=== PATIENT | female | born 1990 | race African-American/Black ===

== ENCOUNTER 2016-12-04 22:18 | Emergency (ER) | payer OTHER ==
[2016-12-05] MEDS ORDERED: NORMAL SALINE 1000 ML 1,000 ML IV ONE (01:00)
--- NOTE | 2016-12-05 01:00 | ER Document Report ---
ED General - General Chief Complaint: Cough Stated Complaint: TROUBLE BREATHING Time Seen by Provider: 12/05/16 00:00 Notes: Patient is a 26-year-old female without past medical history who presents with 36 hours of cough, shortness of breath and lightheadedness. No known sick contacts. Denies any fever. No history of similar symptoms in the past. She has not seen her primary care doctor regarding today's concerns. Nothing improves or worsens her symptoms. She denies any history of DVT or pulmonary embolus. She denies any chest pain or pleuritic pain. Her shortness of breath does not prevent her from walking or completing activities of daily living. Denies any use of estrogen. TRAVEL OUTSIDE OF THE [place] IN LAST 30 DAYS: No - Related Data Allergies/Adverse Reactions: No Known Allergies Allergy (Unverified 04/18/13 03:41) Past Medical History - General Information source: Patient - Social History Smoking Status: Never Smoker Frequency of alcohol use: None Drug Abuse: None Lives with: Family Family History: Reviewed & Not Pertinent Patient has suicidal ideation: No Patient has homicidal ideation: No Renal/ Medical History: Denies: Hx Peritoneal Dialysis - Immunizations Hx Diphtheria, Pertussis, Tetanus Vaccination: Yes Review of Systems - Review of Systems Notes: Constitutional: Negative for fever. HENT: Negative for sore throat. Eyes: Negative for visual changes. Cardiovascular: Negative for chest pain. Respiratory: Positive for shortness of breath. Gastrointestinal: Negative for abdominal pain, vomiting or diarrhea. Genitourinary: Negative for dysuria. Musculoskeletal: Negative for back pain. Skin: Negative for rash. Neurological: Negative for headaches, weakness or numbness. 10 point ROS negative except as marked above and in HPI. Physical Exam - Vital signs Vitals: Temp Pulse Resp BP Pulse Ox 99.3 F 109 H 20 150/100 H 99 12/04/16 22:39 12/04/16 22:39 12/04/16 22:39 12/04/16 22:39 12/04/16 22:39 Interpretation: Tachycardic Notes: PHYSICAL EXAMINATION: GENERAL: Well-appearing, well-nourished and in no acute distress. HEAD: Atraumatic, normocephalic. EYES: Pupils equal round and reactive to light, extraocular movements intact, sclera anicteric, conjunctiva are normal. ENT: nares patent, oropharynx clear without exudates. Moderately dry mucous membranes. NECK: Normal range of motion, supple without lymphadenopathy LUNGS: Mild tachypnea, no distress breath sounds clear to auscultation bilaterally and equal. No wheezes rales or rhonchi. HEART: Regular tachycardia without murmurs ABDOMEN: Soft, nontender, normoactive bowel sounds. No guarding, no rebound. No masses appreciated. EXTREMITIES: Normal range of motion, no pitting or edema. No cyanosis. NEUROLOGICAL: No focal neurological deficits. Moves all extremities spontaneously and on command. PSYCH: Normal mood, normal affect. SKIN: Warm, Dry, normal turgor, no rashes or lesions noted. Course - Re-evaluation Re-evalutation: 12/05/16 00:59 Patient presents with dyspnea, tachycardia, tachypnea, moderately increased work of breathing. No respiratory distress. She reports a history of cough without production of sputum as well as dyspnea over the last 36 hours. Vitals as noted in triage are incorrect patient is actually breathing at 32 times a minute time of my initial assessment, heart rate is 115, she remains afebrile. Differential diagnosis at this time includes acute bronchitis, pneumonia, possible pulmonary embolus, less likely a myocarditis or pericarditis. Will obtain labs, EKG, d-dimer and reassess. 12/05/16 03:28 D-dimer within normal limits. Remaining labs unremarkable. A bedside echocardiogram does not demonstrate any evidence of pericardial effusion or regional wall motion abnormalities. Based on patient's continued tachycardia, I did also obtain a proBNP and troponin to further evaluate for possible myocarditis and these are likewise normal. Awaiting formal radiology read. Patient's heart rate has now normalized current rate is 98. Tachypnea is also improved. 12/05/16 03:57 Patient's tachycardia has now resolved heart rate is 98. Chest x-ray is read as a small left lower lobe opacity consistent with a possible diagnosis of a pneumonia. She will be started on levofloxacin. Given her normalization of vitals and otherwise reassuring evaluation will discharge. At this time will discharge with return precautions and follow-up recommendations. Verbal discharge instructions given a the bedside and opportunity for questions given. Medication warnings reviewed. Patient is in agreement with this plan and has verbalized understanding of return precautions and the need for primary care follow-up in the next 24-72 hours. - Vital Signs Vital signs: Temp Pulse Resp BP Pulse Ox 99.2 F 109 H 27 H 117/91 H 98 12/05/16 02:34 12/04/16 22:39 12/05/16 03:31 12/05/16 03:31 12/05/16 03:31 - Laboratory Result Diagrams: 12/05/16 00:59 12/05/16 00:59 Laboratory results interpreted by me: 12/05/16 00:59 RBC 5.37 H Hgb 11.7 L Hct 35.7 L MCV 67 L MCH 21.8 L RDW 14.6 H - Diagnostic Test Radiology reviewed: Image reviewed, Reports reviewed Radiology results interpreted by me: 12/05/16 03:57 Chest x-ray: Small left lower lobe infiltrate - EKG Interpretation by Me Additional EKG results interpreted by me: 12/05/16 02:26 Sinus tachycardia. Rate 106. No ST elevations or depressions. QTC is 431. Discharge - Discharge Clinical Impression: Left lower lobe pneumonia Qualifiers: Pneumonia type: due to unspecified organism Qualified Code(s): J18.1 - Lobar pneumonia, unspecified organism Dyspnea Qualifiers: Dyspnea type: shortness of breath Qualified Code(s): R06.02 - Shortness of breath; R06.00 - Dyspnea, unspecified; R06.01 - Orthopnea Condition: Good Disposition: HOME, SELF-CARE Additional Instructions: P You have been diagnosed with a pneumonia. It is very important that you take all of your antibiotics until they are gone even if you are feeling better. Please return to the emergency department immediately if you began having worsening shortness of breath, become confused, have worsening pain, pass out, have persistent vomiting that prevents you from being able to drink fluids for more than 12 hours, or have any other symptoms that are worrisome to you. Please follow-up with your primary care doctor in the next 1-2 days. Prescriptions: Levofloxacin [Levaquin 750 mg Tablet] 750 mg PO DAILY #4 tablet Referrals: YESI PEREZ NP [Primary Care Provider] - Follow up in 3-5 days
[2016-12-05 01:11] LABS: ABSOLUTE BASOPHILS # (AUTO) 0.1 10^3/uL (0.0-0.2); ABSOLUTE EOSINOPHILS # (AUTO) 0.1 10^3/uL (0.0-0.6); ABSOLUTE LYMPHOCYTES (AUTO) 1.1 10^3/uL (0.5-4.7); ABSOLUTE MONOCYTES (AUTO) 0.9 10^3/uL (0.1-1.4); ABSOLUTE NEUT (AUTO) 5.3 10^3/uL (1.7-8.2); BASOPHILS % (AUTO) 1.1 % (0-2); EOSINOPHILS % (AUTO) 0.8 % (0-6); HEMATOCRIT 35.7 % (36.0-47.0); HEMOGLOBIN 11.7 g/dL (12.0-15.5); HGB HCT DIFFERENCE -0.6; LYMPHOCYTES % (AUTO) 14.5 % (13-45); MEAN CORPUSCULAR HEMOGLOBIN 21.8 pg (27.0-33.4); MEAN CORPUSCULAR HGB CONC 32.8 g/dL (32.0-36.0); MEAN CORPUSCULAR VOLUME 67 fl (80-97); MONOCYTES % (AUTO) 11.9 % (3-13); RED BLOOD COUNT 5.37 10^6/uL (3.72-5.28); RED CELL DISTRIBUTION WIDTH 14.6 % (11.5-14.0); SEGMENTED NEUTROPHILS % (AUTO) 71.7 % (42-78); WHITE BLOOD COUNT 7.4 10^3/uL (4.0-10.5)
[2016-12-05 01:33] LABS: ANION GAP 8 (5-19); BLOOD UREA NITROGEN 11 mg/dL (7-20); CARBON DIOXIDE 26 mmol/L (22-30); CHLORIDE 103 mmol/L (98-107); CREATININE RESULT 0.96 mg/dL (0.52-1.25); GLUCOSE 96 mg/dL (75-110); POTASSIUM 3.9 mmol/L (3.6-5.0); SODIUM 137.1 mmol/L (137-145)
[2016-12-05] MEDS ORDERED: IBUPROFEN 600 MG TABLET PO ONE (02:41)
[2016-12-05 03:22] LABS: TROPONIN I < 0.012 ng/mL
--- NOTE | 2016-12-05 03:51 | RADIOLOGY REPORT (SQ) ---
EXAM DESCRIPTION: CHEST SINGLE VIEW COMPLETED DATE/TIME: 12/05/2016 3:20 am REASON FOR STUDY: sob COMPARISON: 04/18/2013. EXAM PARAMETERS: NUMBER OF VIEWS: One view. TECHNIQUE: Single frontal radiographic view of the chest acquired. RADIATION DOSE: NA LIMITATIONS: Moderate-small lung volumes decreases sensitivity-specificity. FINDINGS: LUNGS AND PLEURA: Moderate -small lung volumes. Minimal left basilar haziness-layered eff usion. MEDIASTINUM AND HILAR STRUCTURES: No masses. Contour normal. HEART AND VASCULAR STRUCTURES: Heart normal in size. Normal vasculature. BONES: No acute findings. HARDWARE: None in the chest. OTHER: No other significant finding. IMPRESSION: Moderate-small lung volumes. Minimal left basilar opacity-effusion. TECHNICAL DOCUMENTATION: JOB ID: [id number]
[2016-12-05] MEDS ORDERED: LEVOFLOXACIN 750 MG TABLET PO ONE (03:56)
[2016-12-05 04:21] VITALS: BP 133/95
--- NOTE | 2016-12-05 09:29 | EKG REPORT ---
SEVERITY:- ABNORMAL ECG - SINUS TACHYCARDIA NONSPECIFIC T ABNORMALITIES, INFERIOR LEADS : Confirmed by: Rebecca Morin 05-Dec-2016 09:28:12
== END 2016-12-05 04:21 | disposition home or self-care (01) ==
LOC: ER 22:18
DX: J18.1 Lobar pneumonia, unspecified organism (principal); R06.02 Shortness of breath; R06.00 Dyspnea, unspecified; R06.01 Orthopnea; R00.0 Tachycardia, unspecified
CPT/HCPCS: 93005; 99285; 96360; 36415; 85025; 80048; 84484; 85379; 83880; 71010; 93010; J7030

== ENCOUNTER 2017-04-11 08:36 | Outpatient (CLI) | payer OTHER ==
[~2017-04-11 08:36] MED LIST: ACETAMINOPHEN 325 MG TABLET PO PRN; DIPHENHYDRAMINE HCL 25 MG CAPSULE PO PRN; IRON DEXTRAN COMPLEX 25 MG in SYRINGE, DISPOSABLE, 1 EACH IV PRN; IRON DEXTRAN COMPLEX IV PRN; NORMAL SALINE 250 ML IV PRN; NORMAL SALINE IV PRN
[2017-04-11 09:23] VITALS: BP 146/89
== END 2017-04-11 14:20 | disposition home or self-care (01) ==
LOC: II 08:36 → 5TH 08:38 → II 14:20
PROVIDERS: ATTEND Internal Medicine Hematology & Oncology
PROC: 3E033GC Introduction of Other Therapeutic Substance into Peripheral Vein, Percutaneous Approach (ICD-10-PCS; principal; 2017-04-11)
DX: D50.8 Other iron deficiency anemias (principal)
CPT/HCPCS: 96367; 96375; J1750; J7040; J3490; 96365; 96366

== ENCOUNTER 2017-04-18 07:45 | Outpatient (CLI) | payer OTHER ==
[~2017-04-18 07:45] MED LIST changes: -IRON DEXTRAN COMPLEX 25 MG in SYRINGE, DISPOSABLE, 1 EACH IV PRN
[2017-04-18 08:24] VITALS: BP 106/52
== END 2017-04-18 13:34 | disposition home or self-care (01) ==
LOC: II 07:45 → 5TH 07:46 → II 13:34
PROVIDERS: ATTEND Internal Medicine Hematology & Oncology
PROC: 3E033GC Introduction of Other Therapeutic Substance into Peripheral Vein, Percutaneous Approach (ICD-10-PCS; principal; 2017-04-18)
DX: D50.8 Other iron deficiency anemias (principal)
CPT/HCPCS: 96365; 96366; J1750; J7040

== ENCOUNTER 2017-04-25 07:58 | Outpatient (CLI) | payer OTHER ==
[2017-04-25 08:56] VITALS: BP 136/82
== END 2017-04-25 12:03 | disposition home or self-care (01) ==
LOC: II 07:58 → 5TH 07:58 → II 12:03
PROVIDERS: ATTEND Internal Medicine Hematology & Oncology
PROC: 3E033GC Introduction of Other Therapeutic Substance into Peripheral Vein, Percutaneous Approach (ICD-10-PCS; principal; 2017-04-25)
DX: D50.8 Other iron deficiency anemias (principal)
CPT/HCPCS: 96367; J1750; J7040; 96365; 96366

== ENCOUNTER 2017-05-02 07:41 | Outpatient (CLI) | payer OTHER ==
[~2017-05-02 07:41] MED LIST changes: -NORMAL SALINE 250 ML IV PRN
[2017-05-02] MEDS: NORMAL SALINE 250 ML IV PRN ×2 (07:56→08:46)
[2017-05-02 08:51] VITALS: BP 138/78
== END 2017-05-02 13:10 | disposition home or self-care (01) ==
LOC: II 07:41 → 5TH 07:43 → II 13:10
PROVIDERS: ATTEND Internal Medicine Hematology & Oncology
PROC: 3E033GC Introduction of Other Therapeutic Substance into Peripheral Vein, Percutaneous Approach (ICD-10-PCS; principal; 2017-05-02)
DX: D50.8 Other iron deficiency anemias (principal)
CPT/HCPCS: 96365; 96366; J1750; J7040

== ENCOUNTER 2018-07-22 12:55 | Emergency (ER) | payer OTHER ==
[2018-07-22 13:27] VITALS: BP 95/54
--- NOTE | 2018-07-22 13:49 | ER Document Report ---
ED General - General Chief Complaint: Nausea Stated Complaint: FEVER Time Seen by Provider: 07/22/18 13:44 Primary Care Provider: YESI PEREZ NP [Primary Care Provider] - Follow up as needed Mode of Arrival: Ambulatory Information source: Patient Notes: 27-year-old female presents to ED for complaint of fever nausea since Sunday. She went to see Dr. Israel hilton today and was told to come to the emergency room. She is alert oriented respirations regular and unlabored speaking in full sentences. According to the note I got from Jimmy he she had a fever of 101 at his office. Patient denies any pain at this time. She denies any nausea or vomiting. She states she just does not feel good. He did do blood work and her white count was 12.6. TRAVEL OUTSIDE OF THE [place] IN LAST 30 DAYS: No - HPI Onset: Other Onset/Duration: - Sunday Quality of pain: No pain Severity: None Pain Level: Denies Associated symptoms: Nausea, Other - Fatigue and frequent urination Exacerbated by: Denies Relieved by: Denies Similar symptoms previously: Yes Recently seen / treated by doctor: Yes - Related Data Allergies/Adverse Reactions: No Known Allergies Allergy (Verified 07/22/18 13:21) Past Medical History - General Information source: Patient - Social History Smoking Status: Never Smoker Frequency of alcohol use: None Drug Abuse: None Lives with: Family Family History: Reviewed & Not Pertinent Patient has suicidal ideation: No Patient has homicidal ideation: No - Past Medical History Cardiac Medical History: Reports: None Pulmonary Medical History: Reports: None EENT Medical History: Reports: None Neurological Medical History: Reports: None Endocrine Medical History: Reports: None Renal/ Medical History: Reports: None Malignancy Medical History: Reports: None GI Medical History: Reports: None Musculoskeletal Medical History: Reports None Skin Medical History: Reports None Psychiatric Medical History: Reports: None Traumatic Medical History: Reports: None Infectious Medical History: Reports: None Surgical Hx: Negative Past Surgical History: Reports: None - Immunizations Immunizations up to date: Yes Hx Diphtheria, Pertussis, Tetanus Vaccination: Yes Review of Systems - Review of Systems Constitutional: No symptoms reported EENT: No symptoms reported Cardiovascular: No symptoms reported Respiratory: No symptoms reported Gastrointestinal: No symptoms reported Genitourinary: Frequency, Urgency Female Genitourinary: No symptoms reported Musculoskeletal: No symptoms reported Skin: No symptoms reported Hematologic/Lymphatic: No symptoms reported Neurological/Psychological: No symptoms reported -: Yes All other systems reviewed and negative Physical Exam - Vital signs Vitals: Temp Pulse Resp BP Pulse Ox 98.5 F 105 H 16 95/54 L 95 07/22/18 13:25 07/22/18 13:25 07/22/18 13:25 07/22/18 13:25 07/22/18 13:25 Interpretation: Normal - General General appearance: Appears well, Alert - HEENT Head: Normocephalic, Atraumatic Eyes: Normal Pupils: PERRL - Respiratory Respiratory status: No respiratory distress Chest status: Nontender Breath sounds: Normal Chest palpation: Normal - Cardiovascular Rhythm: Regular Heart sounds: Normal auscultation Murmur: No - Abdominal Inspection: Normal Distension: No distension Bowel sounds: Normal Tenderness: Nontender Organomegaly: No organomegaly - Back Back: Normal, Nontender - Extremities General upper extremity: Normal inspection, Nontender, Normal color, Normal ROM, Normal temperature General lower extremity: Normal inspection, Nontender, Normal color, Normal ROM, Normal temperature, Normal weight bearing. No: Elena's sign - Neurological Neuro grossly intact: Yes Cognition: Normal Orientation: AAOx4 [place] Coma Scale Eye Opening: Spontaneous [place] Coma Scale Verbal: Oriented [place] Coma Scale Motor: Obeys Commands [place] Coma Scale Total: 15 Speech: Normal Motor strength normal: LUE, RUE, LLE, RLE Sensory: Normal - Psychological Associated symptoms: Normal affect, Normal mood - Skin Skin Temperature: Warm Skin Moisture: Dry Skin Color: Normal Course - Re-evaluation Re-evalutation: 07/22/18 22:13 To with results of urine and examination. He agreed with plan to treat patient with Macrobid and discharged home to follow-up with primary care doctor. He states he was just concerned the way the patient was acting in his office. He treats the patient for sickle cell and anemia. He was discharged home and instructed to follow-up with primary care doctor. - Vital Signs Vital signs: Temp Pulse Resp BP Pulse Ox 98.3 F 105 H 16 95/54 L 95 07/22/18 16:00 07/22/18 13:25 07/22/18 13:25 07/22/18 13:25 07/22/18 13:25 - Laboratory Laboratory results interpreted by me: 07/22/18 14:30 Urine Protein 100 H Urine Urobilinogen 2.0 H Ur Leukocyte Esterase LARGE H Discharge - Discharge Clinical Impression: Nausea UTI (urinary tract infection) Qualifiers: Urinary tract infection type: acute cystitis Hematuria presence: without hematuria Qualified Code(s): N30.00 - Acute cystitis without hematuria Condition: Stable Disposition: HOME, SELF-CARE Additional Instructions: URINARY TRACT INFECTION: Your evaluation indicates that you have a urinary tract infection. This is due to germs growing in the bladder. This is a common problem. This infection usually responds quickly to antibiotics. Your antibiotic should be taken exactly as prescribed. Drink plenty of fluids -- three to four quarts a day. Occasionally, a bladder anesthetic will be prescribed to help stop the feeling of urgency until the antibiotic has a chance to clear the infection. This may cause your urine to be dark orange. Certain urine infections require a culture. If the doctor obtained a culture, the results will be back in two days. You should call to see if a change in treatment is needed. A repeat urinalysis after you finish treatment is often recommended. The physician will let you know if further testing is required. Call the doctor if you develop fever, chills, flank pain, inability to urinate, or blood in the urine. NITROFURANTOIN (MACRODANTIN, MACROBID): You have received a prescription for nitrofurantoin (Macrodantin). This antibiotic is used for urinary tract infections. Women who are or nursing should notify the physician before taking this medicine. If you have ever had a problem caused by this medication in the past, be sure the physician is aware of it. Common side effects of this medicine include nausea, vomiting, or decreased appetite. Notify your physician if these side effects become severe. Immediately stop this medicine and call the physician if you develop cough, shortness of breath, chest pain, weakness, jaundice (yellow color of the skin and whites of the eyes), or a skin rash. Antinausea Medication You have been given a medication to suppress nausea and vomiting. This type of medication can be given as a shot, pill, or suppository. It will usually last for many hours. Pills and shots usually last six to eight hours, suppositories last about 12 hours. For the typical illness, only one or two doses of the medication may be necessary. Mild lightheadedness may occur. This type of medicine can cause drowsiness. Do not drive or operate dangerous machinery while under its influence. Do not mix with alcohol. See your doctor at once if you have muscle spasms or tightness, or uncontrollable motions (particularly of the neck, mouth, or jaw). Persistent vomiting or severe lightheadedness should also be evaluated by the physician. Acetaminophen Acetaminophen may be taken for pain relief or fever control. It's much safer than aspirin, offering a wider range of "safe" dosages. It is safe during . Some brand names are Tylenol, Panadol, Datril, Anacin 3, Tempra, and Liquiprin. Acetaminophen can be repeated every four hours. The following are maximum recommended dosages: WEIGHT Dose Drops Elixir Chewable(80mg) (LBS.) drprs=droppers tsp=teaspoon 6 40 mg .4 ml (1/2) 6-11 80 mg .8 ml (full) 1/2 tsp 1 tab 12-16 120 mg 1 1/2 drprs 3/4 tsp 1 1/2 tabs 17-23 160 mg 2 drprs 1 tsp 2 tabs 24-30 240 mg 3 drprs 1 1/2 tsp 3 tabs 30-35 320 mg 2 tsp 4 tabs 36-41 360 mg 2 1/4 tsp 4 1/2 tabs 42-47 400 mg 2 1/2 tsp 5 tabs 48-53 480 mg 3 tsp 6 tabs 54-59 520 mg 3 1/4 tsp 6 1/2 tabs 60-64 560 mg 3 1/2 tsp 7 tabs 65-70 600 mg 3 3/4 tsp 7 1/2 tabs 71-76 640 mg 4 tsp 8 tabs 77-82 720 mg 4 1/2 tsp 9 tabs 83-88 800 mg 5 tsp 10 tabs >89 pounds or adults 650 mg to 900 mg Acetaminophen can be repeated every four hours. Maximum daily dose not to exceed 4000 mg. These maximum recommended dosages are slightly higher than the dosages written on the product container, but these dosages are very safe and well below the toxic dosage for acetaminophen. FOLLOW-UP CARE: If you have been referred to a physician for follow-up care, call the physicians office for an appointment as you were instructed or within the next two days. If you experience worsening or a significant change in your symptoms, notify the physician immediately or return to the Emergency Department at any time for re-evaluation. Prescriptions: Nitrofurantoin/Nitrofuran Mac [Macrobid 100 mg Capsule] 1 tab PO BID #14 capsule Forms: Return to Work Referrals: YESI PEREZ, AU PAIR [Primary Care Provider] - Follow up as needed
[2018-07-22 15:23] LABS: APPEARANCE,URINE CLOUDY; BILIRUBIN,URINE NEGATIVE (NEGATIVE); GLUCOSE, URINE NEGATIVE (NEGATIVE); KETONES,URINE NEGATIVE (NEGATIVE); LEUKOCYTE ESTERASE,URINE LARGE (NEGATIVE); NITRITE,URINE NEGATIVE (NEGATIVE); PROTEIN,URINE 100 mg/dL (NEGATIVE); URINE SPECIFIC GRAVITY 1.017
[2018-07-22] MEDS ORDERED: ONDANSETRON 4 MG TAB.RAPDIS PO ONE (15:24)
[2018-07-22] MEDS ORDERED: IBUPROFEN 800 MG TABLET PO ONE (15:24)
[2018-07-22 15:28] LABS: COLOR,URINE YELLOW
== END 2018-07-22 16:10 | disposition home or self-care (01) ==
LOC: ER 12:55
DX: N30.00 Acute cystitis without hematuria (principal); R11.0 Nausea; R50.9 Fever, unspecified; R53.83 Other fatigue; R35.0 Frequency of micturition; R39.15 Urgency of urination; D57.1 Sickle-cell disease without crisis
CPT/HCPCS: 99283; 87086; 81025; 87088; 81001; 87186; S0119